=== PATIENT | female | born 1985 | race African-American/Black ===

== ENCOUNTER 2017-11-23 16:02 | Emergency (ER) | payer MEDICAID, MEDICARE, OTHER ==
[~2017-11-23] VITALS: Ht 162.6 cm; Wt 60.0 kg
[2017-11-23] MEDS ORDERED: SODIUM CHLORIDE 0.9% 1,000 ML IV ONE (18:00)
[2017-11-23 19:54] LABS: BASOPHILS % 0.5 % (0.0-2.0); EOSINOPHILS % 0.7 % (0.0-5.0); HEMATOCRIT. 34.5 % (36.0-48.0); HEMOGLOBIN. 11.7 g/dL (12.0-16.0); LYMPHOCYTES % 14.6 % (20.0-50.0); MEAN CORPUSCULAR HEMOGLOBIN 33.5 pg (28.0-32.0); MEAN CORPUSCULAR VOLUME 99.1 fL (81.0-99.0); MEAN PLATELET VOLUME 7.6 fl (7.4-10.4); MONOCYTES % 6.4 % (2.0-8.0); NEUTROPHILS % 77.8 % (40.0-76.0); PLATELET 258 x1000/uL (130-400); RED BLOOD CELL COUNT 3.48 mill/uL (4.2-5.4); RED CELL DISTRIBUTION WIDTH 12.9 % (11.6-14.6)
[2017-11-23 19:56] LABS: CHLORIDE 114 mEq/L (98-107)
[2017-11-23 20:11] LABS: PROTHROMBIN TIME 10.6 sec (9.4-11.6)
[2017-11-23 20:59] VITALS: BP 104/69
== END 2017-11-23 21:11 | disposition home or self-care (01) ==
LOC: ER 16:20
DX: R55 Syncope and collapse (principal); D53.9 Nutritional anemia, unspecified; E87.8 Other disorders of electrolyte and fluid balance, not elsewhere classified; E83.51 Hypocalcemia; E88.09 Other disorders of plasma-protein metabolism, not elsewhere classified; Z52.000 Unspecified donor, whole blood
CPT/HCPCS: 36415; 71045; 80053; 81025; 82962; 83735; 83880; 84484; 85025; 85610; 93005; 96360; 99285; J7030; J7040